=== PATIENT | female | born 1990 | race Caucasian/White ===

== ENCOUNTER 2018-07-08 15:56 | Outpatient (CLI) | payer OTHER ==
[2018-07-08 16:52] LABS: APPEARANCE,URINE CLEAR; BILIRUBIN,URINE NEGATIVE (NEGATIVE); COLOR,URINE YELLOW; GLUCOSE, URINE NEGATIVE (NEGATIVE); KETONES,URINE NEGATIVE (NEGATIVE); LEUKOCYTE ESTERASE,URINE NEGATIVE (NEGATIVE); NITRITE,URINE NEGATIVE (NEGATIVE); PROTEIN,URINE NEGATIVE (NEGATIVE); URINE SPECIFIC GRAVITY 1.008; UROBILINOGEN,URINE NEGATIVE mg/dL (<2.0)
[2018-07-08 17:15] LABS: URINE AMPHETAMINES SCREEN NEGATIVE; URINE BARBITURATES SCREEN NEGATIVE; URINE BENZODIAZEPINES SCREEN NEGATIVE; URINE COCAINE SCREEN NEGATIVE; URINE MARIJUANA (THC) SCREEN NEGATIVE; URINE METHADONE SCREEN NEGATIVE; URINE PHENCYCLIDINE SCREEN NEGATIVE
[2018-07-08] MEDS ORDERED: RINGERS SOLUTION,LACTATED 1,000 ML IV PRN (23:41)
[2018-07-08] MEDS ORDERED: RINGERS SOLUTION,LACTATED 1,000 ML IV ONE (23:47)
[2018-07-08] MEDS ORDERED: LIDOCAINE 1% INJ-PF (10 MG/ML) 30 ML SDV ONE (23:51)
[2018-07-08] MEDS ORDERED: BUPIVACAINE HCL 0.5 % INJ/PF 30 ML SDV ONE (23:51)
[2018-07-08] MEDS ORDERED: MISOPROSTOL 0.2 MG TABLET ONE (23:51)
[2018-07-08] MEDS ORDERED: EPHEDRINE SULFATE INJ 50 MG/1 ML AMPULE ONE (23:51)
[2018-07-08] MEDS ORDERED: FENTANYL/BUPIVACAINE/NS/PF 0 MCG/0 ML RTUINJ EPI ONE (23:51)
[2018-07-08] MEDS ORDERED: OXYTOCIN/NORMAL SALINE 0 UNIT/0 ML RTUINJ ONE (23:51)
== END 2018-07-08 16:55 | disposition home or self-care (01) ==
LOC: LC 15:56 → LR 23:11 → UNDOADMIN 23:11
PROVIDERS: ATTEND Obstetrics & Gynecology
DX: O47.1 False labor at or after 37 completed weeks of gestation (principal); Z3A.39 39 weeks gestation of pregnancy
CPT/HCPCS: 59025; 80307; 81005; J2590; J3010; J3490

== ENCOUNTER 2018-07-08 22:48 | Inpatient (IN) | payer OTHER ==
[2018-07-08] MEDS ORDERED: RINGERS SOLUTION,LACTATED 1,000 ML IV PRN (23:16)
[2018-07-08] MEDS ORDERED: RINGERS SOLUTION,LACTATED 1,000 ML IV ONE (23:25)
[2018-07-08 23:30] LABS: ABSOLUTE BASOPHILS # (AUTO) 0.1 10^3/uL (0.0-0.2); ABSOLUTE EOSINOPHILS # (AUTO) 0.1 10^3/uL (0.0-0.6); ABSOLUTE LYMPHOCYTES (AUTO) 1.5 10^3/uL (0.5-4.7); ABSOLUTE MONOCYTES (AUTO) 1.3 10^3/uL (0.1-1.4); ABSOLUTE NEUT (AUTO) 10.8 10^3/uL (1.7-8.2); BASOPHILS % (AUTO) 0.5 % (0-2); EOSINOPHILS % (AUTO) 0.8 % (0-6); HEMATOCRIT 36.2 % (36.0-47.0); HEMOGLOBIN 12.2 g/dL (12.0-15.5); LYMPHOCYTES % (AUTO) 11.3 % (13-45); MEAN CORPUSCULAR HEMOGLOBIN 29.9 pg (27.0-33.4); MEAN CORPUSCULAR HGB CONC 33.6 g/dL (32.0-36.0); MEAN CORPUSCULAR VOLUME 89 fl (80-97); MONOCYTES % (AUTO) 9.1 % (3-13); PLATELET COUNT 203 10^3/uL (150-450); RED BLOOD COUNT 4.07 10^6/uL (3.72-5.28); RED CELL DISTRIBUTION WIDTH 14.7 % (11.5-14.0); SEGMENTED NEUTROPHILS % (AUTO) 78.3 % (42-78); TOTAL CELLS COUNTED % (AUTO) 100 %; WHITE BLOOD COUNT 13.7 10^3/uL (4.0-10.5)
[2018-07-08 23:32] LABS: APPEARANCE,URINE CLEAR; BILIRUBIN,URINE NEGATIVE (NEGATIVE); COLOR,URINE STRAW; GLUCOSE, URINE NEGATIVE (NEGATIVE); KETONES,URINE NEGATIVE (NEGATIVE); LEUKOCYTE ESTERASE,URINE NEGATIVE (NEGATIVE); NITRITE,URINE NEGATIVE (NEGATIVE); PROTEIN,URINE NEGATIVE (NEGATIVE); URINE SPECIFIC GRAVITY 1.003; UROBILINOGEN,URINE NEGATIVE mg/dL (<2.0)
[2018-07-08 23:46] LABS: URINE AMPHETAMINES SCREEN NEGATIVE; URINE BARBITURATES SCREEN NEGATIVE; URINE BENZODIAZEPINES SCREEN NEGATIVE; URINE COCAINE SCREEN NEGATIVE; URINE MARIJUANA (THC) SCREEN NEGATIVE; URINE METHADONE SCREEN NEGATIVE; URINE PHENCYCLIDINE SCREEN NEGATIVE
[2018-07-09] MEDS ORDERED: BUPIVACAINE HCL 0.5 % INJ/PF 30 ML SDV ONE (00:01)
[2018-07-09] MEDS ORDERED: MISOPROSTOL 0.2 MG TABLET ONE (00:01)
[2018-07-09] MEDS ORDERED: FENTANYL/BUPIVACAINE/NS/PF 300 MCG/150 ML RTUINJ EPI ONE (00:01)
[2018-07-09] MEDS ORDERED: EPHEDRINE SULFATE INJ 50 MG/1 ML AMPULE ONE (00:01)
[2018-07-09] MEDS ORDERED: LIDOCAINE 1% INJ-PF (10 MG/ML) 30 ML SDV ONE (00:01)
[2018-07-09] MEDS ORDERED: OXYTOCIN/NORMAL SALINE 20 UNIT/1,000 ML RTUINJ ONE (00:01)
[2018-07-09] MEDS ORDERED: OXYTOCIN/NORMAL SALINE 20 UNIT/1,000 ML RTUINJ IV PRN ×2 (02:32→04:23)
--- NOTE | 2018-07-09 02:32 | Admission Physical ---
Datetime Report Generated by CPN: 07/09/2018 02:32 CURRENT ADMISSION Chief Complaint: Uterine Contractions Indication for Induction: Not Applicable Admit Impression : Term, Intrauterine ; Active Labor Admit Plan: Admit to Unit; Initiate Labor Protocol ALLERGIES Medication Allergies: No Medication Allergies: No Known Allergies (07/08/2018) Latex: No Latex Allergies OBSTETRICAL HISTORY EDC: 07/10/2018 00:00 : 1 Para: 0 Term: 0 : 0 SAB: 0 IAB: 0 Ectopic: 0 Livin Cesareans: 0 VBACs: 0 Multiple Births: 0 PHYSICAL EXAM General: Normal HEENT: Normal Neurologic: Normal Thyroid: Normal Heart: Normal Lungs: Normal Breast: Normal Back: Normal Abdomen: Normal Genitourinary Exam: Normal Extremities: Normal DTRs: Normal Pelvic Type: Adequate Vital Signs: Reviewed VAGINAL EXAM Dilatation: 3 Effacement: 100 Station: -1 MEMBRANES Pooling: Negative Membranes: Intact FETUS A EGA: 39.6 Monitoring: External US FHR- Baseline: 130 Variability: Moderate 6-25bpm Accelerations: 15X15 Decelerations: None FHR Category: Category I Estimated Weight (gm): 3400 Presentation: Vertex PLANS FOR LABOR AND DELIVERY Circumcision: N/A INFORMED CONSENT Signature: with User ID: [email or web address]
[2018-07-09] MEDS ORDERED: ACETAMINOPHEN 325 MG TABLET ONE ×2 (04:04→04:20)
[2018-07-09] MEDS ORDERED: AMPICILLIN SOD INJ 1 GM VIAL ONE (04:07)
[2018-07-09] MEDS ORDERED: DIPH/PERTUSS(ACELL)/TETANUS VAC/PF 0.5 ML SYR (>=10YO) IM PRN (04:23)
[2018-07-09] MEDS ORDERED: PROMETHAZINE HCL INJ 25 MG/1 ML VIAL IV PRN (04:23)
[2018-07-09] MEDS ORDERED: DIBUCAINE 1% OINTMENT 28 GM TP PRN (04:23)
[2018-07-09] MEDS ORDERED: MEASLES,MUMPS&RUBELLA VACC/PF 0.5 ML VIAL SUBCUT PRN (04:23)
[2018-07-09] MEDS ORDERED: ACETAMINOPHEN WITH CODEINE #3 TABLET PO PRN ×2 (04:23)
[2018-07-09] MEDS ORDERED: PSEUDOEPHEDRINE HCL 30 MG TABLET PO PRN (04:23)
[2018-07-09] MEDS ORDERED: DIPHENHYDRAMINE HCL 25 MG CAPSULE PO PRN (04:23)
[2018-07-09] MEDS ORDERED: BENZOCAINE/MENTHOL AEROSOL SPRAY 56 ML TOP PRN (04:23)
[2018-07-09] MEDS ORDERED: PROMETHAZINE HCL 25 MG SUPP.RECT PR PRN (04:23)
[2018-07-09] MEDS ORDERED: MAGNESIUM HYDROXIDE SUSP 30 ML UDCUP PO PRN (04:23)
[2018-07-09] MEDS ORDERED: ZOLPIDEM TARTRATE 5 MG TABLET PO PRN (04:23)
[2018-07-09] MEDS ORDERED: GLYCERIN/WITCH HAZEL LEAF 1 EACH MED..PAD TP PRN (04:23)
[2018-07-09] MEDS ORDERED: NA PHOS,M-B/NA PHOS,DI-BA (ADULT) 133 ML ENEMA PR PRN (04:23)
[2018-07-09] MEDS ORDERED: ACETAMINOPHEN 650 MG SUPP.RECT PR PRN (04:23)
[2018-07-09] MEDS ORDERED: PROMETHAZINE HCL 25 MG TABLET PO PRN (04:23)
[2018-07-09] MEDS ORDERED: IBUPROFEN 800 MG TABLET ONE (05:40)
[2018-07-09] MEDS: IBUPROFEN 800 MG TABLET PO SCH ×3 (06:02→21:36)
--- NOTE | 2018-07-09 06:14 | Delivery Summary ---
Del Sum A-C Datetime Report Generated by CPN: 07/09/2018 06:14 DELIVERY PERSONNEL DELIVERY PERSONNEL: [id number] Delivery Doctor:: Pam Pavon MD Labor and Delivery Nurse:: Marlena Rooney RN Labor and Delivery Nurse:: Casandra Mills RN Cath Lab Tech/CELLULAR EQUIPMENT INSTALLER: Agusto Ertel, CELLULAR EQUIPMENT INSTALLER MATERNAL INFORMATION Delivery Anesthesia: Epidural Medications After Delivery: Pitocin Drip 20 Units/1000ml NSS; Cytotec 1000mcg Per Rectum/Vagina Estimated Blood Loss (ml): 200 Maternal Complications: None LABOR SUMMARY EDC: 07/10/2018 00:00 No. Babies in Womb: 1 Attempted: No Labor Anesthesia: Epidural LABOR INFORMATION Reason for Induction: Not Applicable Onset of Labor: 07/08/2018 23:05 Complete Dilatation: 07/09/2018 03:24 Oxytocin: Augmentation Group B Beta Strep: negative Antibiotics # of Doses: 0 Steroids Given: None Reason Steroids Not Administered: Not Applicable MEMBRANES Membranes Rupture Method: Artificial Rupture of Membranes: 07/09/2018 02:24 Length of Rupture (hr): 1.73 Amniotic Fluid Color: Clear Amniotic Fluid Amount: Small Amniotic Fluid Odor: Normal STAGES OF LABOR Stage 1 hr: 4 Stage 1 min: 19 Stage 2 hr: 0 Stage 2 min: 44 Stage 3 hr: 0 Stage 3 min: 3 Total Time in Labor hr: 5 Total Time in Labor min: 6 VAGINAL DELIVERY Episiotomy: None Laceration #1: None Laceration Extension #1: N/A Laceration Repair: Not Applicable CSECTION DELIVERY Primary Indication: N/A Secondary Indication: N/A CSection Incidence: N/A Labor: N/A Elective: N/A CSection Incision: N/A BABY A INFORMATION Infant Delivery Date/Time: 07/09/2018 04:08 Method of Delivery: Vaginal Born in Route : No : N/A Forceps: N/A Vacuum Extraction: N/A Shoulder Dystocia : No PRESENTATION/POSITION BABY A Presentation: Cephalic Cephalic Presentation: Vertex Vertex Position: Left Occipital Anterior Breech Presentation: N/A PLACENTA INFORMATION BABY A Placenta Delivery Time : 07/09/2018 04:11 Placenta Method of Delivery: Spontaneous Placenta Status: Delivered SCORES BABY A Heart Rate 1 min: >100 bpm Resp Effort 1 min: Good Cry Reflex Irritability 1 min: Cough or Sneeze or Pulls Away Muscle Tone 1 min: Active Motion Color 1 min: Blue/Pale Resuscitation Effort 1 min: Tactile Stimulation SCORE 1 MIN: 8 Heart Rate 5 min: >100 bpm Resp Effort 5 min: Good Cry Reflex Irritability 5 min: Cough or Sneeze or Pulls Away Muscle Tone 5 min: Active Motion Color 5 min: Body [place], Extremities Blue Resuscitation Effort 5 min: Tactile Stimulation SCORE 5 MIN: 9 INFORMATION BABY A Gestational Age at Delivery: 39.6 Gestational Status: Full Term- 39- 40.6 Weeks Infant Outcome : Liveborn Condition : Stable Infant Sex: Female IDENTIFICATION BABY A Infant Verification Date/Time: 07/09/2018 04:52 ID Band Number: [id number] Mother's Name Verified: Yes RN Verifying Infant: SMadeline Rooney, RNC _ A. Torstener, RN WEIGHT/LENGTH BABY A Infant Birthweight (gm): 3420 Infant Weight (lb): 7 Infant Weight (oz): 9 Infant Length (in): 20.75 Length (cm): 52.71 CORD INFORMATION BABY A No. Cord Vessels: 3 Nuchal Cord : N/A Cord Blood Taken: Yes-For Eval (Mom's Blood Type - or O+) Suction: Mouth; Nose ASSESSMENT BABY A Infant Complications: None Physical Findings at Delivery: Within Normal Limits Infant Respirations: Appears Normal Chain Repairer/ALS Called : No Infant Care By: Velma Mills RN Transferred To: Remains with Mother BABY B INFORMATION : N/A SIGNATURES Signature: with User ID: [email or web address]
--- NOTE | 2018-07-09 09:29 | PDOC PROGRESS REPORT ---
Subjective-OB Progress Note for:: 07/09/18 - Delivery Day, doing well, plans to breastfeed. Retained placenta w/ low grade fever during labor. Pt states she has been up to void w/out problems or increased bleeding Physical Exam (OB) Vital Signs: Temp Pulse Resp BP Pulse Ox 98.9 F 82 18 125/70 95 07/09/18 07:52 07/09/18 07:52 07/09/18 07:52 07/09/18 07:52 07/09/18 07:52 Intake & Output 07/08/18 07/09/18 07/10/18 06:59 06:59 06:59 Weight 71.1 kg - General General Appearance: Appears well, Alert In distress: None - PIH/Pre-Eclampsia Clonus: Negative Headache: Absent Epigastric Pain: No Visual Changes: No - Lochia Lochia Amount: Scant < 10 ml Lochia Color: Rubra/Red - Abdomen Description: Soft, Flat Hernia Present: No Fundal Description: Firm, Midline Fundal Height: u/u - u/2 - Respiratory Respiratory Status: No respiratory distress - Genitourinary Genitourinary Note: voiding - Extremities Upper extremity: Normal inspection Lower extremities: Normal inspection - Neurological Cognition: Normal Orientation: AAOx4 - Skin Skin Temperature: Warm Skin Moisture: Dry Objective-Diagnostic Laboratory: 07/08/18 23:18 07/08/18 07/08/18 07/08/18 22:56 23:18 23:18 WBC 13.7 H RBC 4.07 Hgb 12.2 Hct 36.2 MCV 89 MCH 29.9 MCHC 33.6 RDW 14.7 H Plt Count 203 Seg Neutrophils % 78.3 H Lymphocytes % 11.3 L Monocytes % 9.1 Eosinophils % 0.8 Basophils % 0.5 Absolute Neutrophils 10.8 H Absolute Lymphocytes 1.5 Absolute Monocytes 1.3 Absolute Eosinophils 0.1 Absolute Basophils 0.1 Urine Color STRAW Urine Appearance CLEAR Urine pH 7.0 Ur Specific [place] 1.003 Urine Protein NEGATIVE Urine Glucose (UA) NEGATIVE Urine Ketones NEGATIVE Urine Blood NEGATIVE Urine Nitrite NEGATIVE Ur Leukocyte Esterase NEGATIVE Blood Type O POSITIVE Antibody Screen NEGATIVE Assessment and Plan(PN) - Assessment and Plan (1) (normal spontaneous vaginal delivery) Is this a current diagnosis for this admission?: Yes - Time Spent with Patient Time with patient: Less than 15 minutes Medications reviewed and adjusted accordingly: Yes - Disposition Anticipated Discharge: Home Within: within 48 hours
[2018-07-09] MEDS: FAMOTIDINE 20 MG TABLET PO SCH ×2 (10:00→21:36)
[2018-07-09] MEDS: SENNOSIDES/DOCUSATE 8.6-50 MG 1 EACH TABLET PO SCH (10:00)
[2018-07-09] MEDS: FERROUS SULFATE 325 MG TABLET PO SCH ×2 (10:00→18:20)
[2018-07-09] MEDS: PRENATAL VITAMIN W DHA CAPSULE PO SCH (10:00)
[2018-07-09] MEDS: DOCUSATE SODIUM 100 MG CAPSULE PO SCH ×2 (10:00→18:20)
[2018-07-10] MEDS: IBUPROFEN 800 MG TABLET PO SCH ×2 (06:18→13:05)
[2018-07-10 07:05] LABS: HEMATOCRIT 33.4 % (36.0-47.0); HEMOGLOBIN 11.4 g/dL (12.0-15.5); MEAN CORPUSCULAR HEMOGLOBIN 30.8 pg (27.0-33.4); MEAN CORPUSCULAR HGB CONC 34.2 g/dL (32.0-36.0); MEAN CORPUSCULAR VOLUME 90 fl (80-97); PLATELET COUNT 150 10^3/uL (150-450); RED BLOOD COUNT 3.71 10^6/uL (3.72-5.28); RED CELL DISTRIBUTION WIDTH 14.5 % (11.5-14.0); WHITE BLOOD COUNT 9.7 10^3/uL (4.0-10.5)
[2018-07-10 08:21] VITALS: BP 122/82
[2018-07-10] MEDS: PRENATAL VITAMIN W DHA CAPSULE PO SCH (09:47)
[2018-07-10] MEDS: FERROUS SULFATE 325 MG TABLET PO SCH ×2 (09:47→17:49)
[2018-07-10] MEDS: FAMOTIDINE 20 MG TABLET PO SCH (09:47)
[2018-07-10] MEDS: DOCUSATE SODIUM 100 MG CAPSULE PO SCH ×2 (09:47→17:49)
[2018-07-10] MEDS: SENNOSIDES/DOCUSATE 8.6-50 MG 1 EACH TABLET PO SCH (09:47)
--- NOTE | 2018-07-10 10:52 | PDOC DISCHARGE SUMMARY ---
Final Diagnosis Discharge Date: 07/10/18 - Final Diagnosis (1) (normal spontaneous vaginal delivery) Is this a current diagnosis for this admission?: Yes Discharge Data - Discharge Medication Prescriptions: Ibuprofen [Motrin 800 mg Tablet] 800 mg PO Q8HP PRN #60 tablet PRN Reason: Home Medications: Vit/Dha [ Multi + Dha Capsule] 1 cap PO DAILY 07/08/18 Ibuprofen [Motrin 800 mg Tablet] 800 mg PO Q8HP PRN #60 tablet 07/10/18 Reason(s) for Admission: Onset of Labor Procedures: NST Intrapartum Procedure(s): Spontaneous Vaginal Delivery - Diagnosis Test Laboratory: Temp Pulse Resp BP Pulse Ox 97.7 F 68 16 122/82 98 07/10/18 08:02 07/10/18 08:02 07/10/18 08:02 07/10/18 08:02 07/10/18 08:02 07/08/18 07/08/18 07/10/18 22:56 23:18 06:41 RBC 4.07 3.71 L Hgb 12.2 11.4 L Hct 36.2 33.4 L Urine Opiates Screen NEGATIVE - Discharge information/Instructions Discharge Activity: Activity As Tolerated, Balance Activity w/Rest, Pelvic Rest Discharge Diet: Regular Disposition: HOME, SELF-CARE Follow up with: [facility] in: 3, 4, Weeks
== END 2018-07-10 18:30 | disposition home or self-care (01) | DRG 807 ==
LOC: LC 22:48 → LR 07-09 → 2S 07-09 06:25
PROVIDERS: ADMIT Obstetrics & Gynecology; ATTEND Obstetrics & Gynecology
PROC: 10E0XZZ Delivery of Products of Conception, External Approach (ICD-10-PCS; principal; 2018-07-09)
DX: O80 Encounter for full-term uncomplicated delivery (principal); Z37.0 Single live birth; Z3A.39 39 weeks gestation of pregnancy
CPT/HCPCS: 36415; 80307; 81005; 85025; 85027; 86592; 86850; 86900; 86901; 94760; J0290; J2590; J3010; J3490

== ENCOUNTER 2020-05-25 16:17 | Outpatient (CLI) | payer OTHER ==
[2020-05-25 16:54] LABS: APPEARANCE,URINE CLEAR; BILIRUBIN,URINE NEGATIVE (NEGATIVE); COLOR,URINE YELLOW; GLUCOSE, URINE 50 mg/dL (NEGATIVE); KETONES,URINE NEGATIVE (NEGATIVE); LEUKOCYTE ESTERASE,URINE NEGATIVE (NEGATIVE); NITRITE,URINE NEGATIVE (NEGATIVE); PROTEIN,URINE NEGATIVE (NEGATIVE); URINE SPECIFIC GRAVITY 1.009; UROBILINOGEN,URINE NEGATIVE mg/dL (<2.0)
[2020-05-25 17:11] LABS: URINE AMPHETAMINES SCREEN NEGATIVE; URINE BARBITURATES SCREEN NEGATIVE; URINE BENZODIAZEPINES SCREEN NEGATIVE; URINE COCAINE SCREEN NEGATIVE; URINE MARIJUANA (THC) SCREEN NEGATIVE; URINE METHADONE SCREEN NEGATIVE; URINE PHENCYCLIDINE SCREEN NEGATIVE
== END 2020-05-25 17:10 | disposition home or self-care (01) ==
LOC: LC 16:17
PROVIDERS: ATTEND Obstetrics & Gynecology Gynecology
DX: O9A.213 Injury, poisoning and certain other consequences of external causes complicating pregnancy, third trimester (principal); Z3A.28 28 weeks gestation of pregnancy; T14.8XXA Other injury of unspecified body region, initial encounter; W86.1XXA Exposure to industrial wiring, appliances and electrical machinery, initial encounter; Y93.9 Activity, unspecified; Y92.9 Unspecified place or not applicable
CPT/HCPCS: 80307; 81001

== ENCOUNTER 2020-08-09 06:02 | Inpatient (IN) | payer OTHER ==
[2020-08-09] MEDS ORDERED: PENICILLIN G POTASSIUM 5,000,000 UNIT in DEXTROSE 5%-WATER 100 ML IV ONE (06:08)
[2020-08-09] MEDS ORDERED: RINGERS SOLUTION,LACTATED 1,000 ML IV PRN (06:08)
[2020-08-09] MEDS ORDERED: MISOPROSTOL 0.2 MG TABLET ONE (06:22)
[2020-08-09] MEDS ORDERED: OXYTOCIN/0.9 % SODIUM CHLORIDE 30 UNIT/500 ML RTUINJ ONE (06:22)
[2020-08-09] MEDS ORDERED: OXYTOCIN 10 UNIT/ML VIAL ONE (06:22)
[2020-08-09] MEDS ORDERED: LIDOCAINE 1% INJ-PF (10 MG/ML) 30 ML SDV ONE (06:22)
[2020-08-09] MEDS ORDERED: PENICILLIN G-K 5 MILLION UNIT VIAL ONE (06:23)
[2020-08-09 06:50] LABS: ABSOLUTE EOSINOPHILS # (AUTO) 0.1 10^3/uL (0.0-0.6); ABSOLUTE LYMPHOCYTES (AUTO) 1.5 10^3/uL (0.5-4.7); ABSOLUTE MONOCYTES (AUTO) 0.7 10^3/uL (0.1-1.4); ABSOLUTE NEUT (AUTO) 5.3 10^3/uL (1.7-8.2); BASOPHILS % (AUTO) 0.5 % (0-2); EOSINOPHILS % (AUTO) 1.4 % (0-6); HEMATOCRIT 34.5 % (36.0-47.0); HEMOGLOBIN 11.5 g/dL (12.0-15.5); LYMPHOCYTES % (AUTO) 19.9 % (13-45); MEAN CORPUSCULAR HEMOGLOBIN 29.4 pg (27.0-33.4); MEAN CORPUSCULAR HGB CONC 33.4 g/dL (32.0-36.0); MEAN CORPUSCULAR VOLUME 88 fl (80-97); PLATELET COUNT 189 10^3/uL (150-450); RED BLOOD COUNT 3.92 10^6/uL (3.72-5.28); SEGMENTED NEUTROPHILS % (AUTO) 69.2 % (42-78); TOTAL CELLS COUNTED % (AUTO) 100 %; WHITE BLOOD COUNT 7.7 10^3/uL (4.0-10.5)
[2020-08-09 07:17] LABS: URINE AMPHETAMINES SCREEN NEGATIVE; URINE BARBITURATES SCREEN NEGATIVE; URINE BENZODIAZEPINES SCREEN NEGATIVE; URINE COCAINE SCREEN NEGATIVE; URINE MARIJUANA (THC) SCREEN NEGATIVE; URINE METHADONE SCREEN NEGATIVE; URINE PHENCYCLIDINE SCREEN NEGATIVE
[2020-08-09] MEDS ORDERED: OXYTOCIN/0.9 % SODIUM CHLORIDE 30 UNIT/500 ML RTUINJ IV PRN ×2 (07:30→15:06)
--- NOTE | 2020-08-09 09:03 | Admission Physical ---
Datetime Report Generated by CPN: 08/09/2020 09:03 CURRENT ADMISSION Indication for Induction: Maternal Diabetes Indication for Induction- Other: GDM on Glyburide Admit Impression : Term, Intrauterine ; Induction of Labor Admit Plan: Admit to Unit; Initiate Labor Induction Protocol Admit Plan- Other: PCN prophylaxis for GBS+ status ALLERGIES Medication Allergies: No Medication Allergies: No Known Allergies (08/09/2020) OBSTETRICAL HISTORY EDC: 08/16/2020 00:00 : 2 Para: 1 Term: 1 : 0 SAB: 0 IAB: 0 Livin Gestational Diabetes: Yes Rh Sensitization: No Incompetent Cervix: No JAVAD: No Infertility: No ART Treatment: No Uterine Anomaly: No IUGR: No Hx Previous C/S: No Macrosomia: No Hx Loss/Stillborn: No PIH: No Hx : No Placenta Previa/Abruption: No Depression/PP Depression: No PTL/PROM: No Post Hemorrhage: No Current Procedures: Ultrasound; NST SEE RECORDS Alcohol: No Marijuana : No Cocaine: No Other Illicit Drugs: No Cigarettes: Never Smoker. [id number] MEDICAL HISTORY Diabetes: Yes Diabetes Type: Gestational Diabetes Blood Transfusion: No Pulmonary Disease (Asthma, TB): No Breast Disease: No Hypertension: No Technology Assistant Surgery: No Heart Disease: No Hosp/Surgery: Yes Autoimmune Disorder: No Anesthetic Complications: No Kidney Disease: No Abnormal Pap Smear: No Neuro/Epilepsy: No Psychiatric Disorders: No Other Medical Diseases: No Hepatitis/Liver Disease: No Significant Family History: No Varicosities/Phlebitis: No Trauma/Violence : No Thyroid Dysfunction: No Medical History Comments: bilateral ureter replacement, tonsillectomy, bunionectomy. INFECTIOUS HISTORY Gonorrhea: No Genital Herpes: No Chlamydia: No Tuberculosis: No Syphilis: No Hepatitis: No HIV/AIDS Exposure: No Rash or Viral Illness: No HPV: No PHYSICAL EXAM General: Normal HEENT: Normal Neurologic: Normal Thyroid: Normal Heart: Normal Lungs: Normal Breast: Normal Back: Normal Abdomen: Normal Genitourinary Exam: Normal Extremities: Normal DTRs: Normal Pelvic Type: Adequate Vital Signs: Reviewed FETUS A Monitoring: External US FHR- Baseline: 135 Variability: Moderate 6-25bpm Accelerations: 15X15 Decelerations: None FHR Category: Category I Admit Comment: here for IOL at 39 wks d/t GDM on glyburide. Pt doing well, no complaints, sitting on the birthing ball. GBS+ status, first dose of PCN infusing. Pitocin started. Pt plans an epdidural when in active labor. EFW on last u/s per the pt is 6+9. Proven to 7 and 1/2 pound baby with first delivery. Will plan to AROM once 4 hours PCN on board, Pt may have an epidural when in labor. Attending MD is Dr Saldaña. PLANS FOR LABOR AND DELIVERY Labor and Delivery: None Pain Management: Epidural Feeding Preference: Breast Circumcision: No INFORMED CONSENT Assignment: Casandra Saldaña MD Signature: with User ID: [email or web address] : with User ID: [email or web address]
[2020-08-09] MEDS: PENICILLIN G POTASSIUM 2,500,000 UNIT in DEXTROSE 5%-WATER 50 ML IV SCH ×2 (10:49→19:41)
[2020-08-09] MEDS ORDERED: EPHEDRINE SULFATE INJ 50 MG/1 ML AMPULE ONE (12:19)
[2020-08-09] MEDS ORDERED: ROPIVACAINE HCL 0.2% INJ/PF (2 MG/ML) 20 ML SDV ONE (12:20)
[2020-08-09] MEDS ORDERED: FENTANYL/BUPIVACAINE/NS/PF 300 MCG/150 ML RTUINJ EPI ONE (12:20)
--- NOTE | 2020-08-09 13:44 | L&D Progress Notes ---
PROGRESS NOTES Datetime Report Generated by CPN: 08/09/2020 13:44 PROGRESS NOTE Comment: PCN second dose has infused. VE 5/80/-2, Pitocin infusing and pt is becoming uncomfortable, desires an epidural now. Will plan to AROM after the epidural is placed. Positin changes encouraged. LAST VAGINAL EXAM-NURSING Nursing Exam Dilitation: 5.0 Nursing Exam Effacement: 80 Nursing Exam Station: -2 MEMBRANES Membranes: Intact FETUS A Monitoring: External US Decelerations: None FHR Category: Category I SIGNATURE SIGNATURE: [id number];[id number] Assignment: Casandra Saldaña MD Signature: with User ID: [email or web address] : with User ID: [email or web address]
--- NOTE | 2020-08-09 13:50 | L&D Progress Notes ---
PROGRESS NOTES Datetime Report Generated by CPN: 08/09/2020 13:50 PROGRESS NOTE Impression: Reassuring Heart Rate Procedures: Artificial ROM; Sterile Vag Exam Plan: Continue Present Management; Induction; Anticipate Vaginal Delivery Comment: Epidural in place, pt is comfortable, VE /-1, AROM w/ clear fluid. Position changes encouraged, anticipate . Attending MD is DR Saldaña. LAST VAGINAL EXAM-NURSING Nursing Exam Dilitation: 8.0 Nursing Exam Effacement: 90 Nursing Exam Station: -1 MEMBRANES Membranes: Ruptured Amniotic Fluid Color: Clear FETUS A FHR - Baseline: 125 Monitoring: External US Variability: Moderate 6-25bpm Accelerations: 15X15 Decelerations: Variable FHR Category: Category I SIGNATURE SIGNATURE: [id number];[id number] Assignment: Casandra Saldaña MD Signature: with User ID: [email or web address] : with User ID: [email or web address]
[2020-08-09] MEDS ORDERED: VARICELLA VACC/PF (1350 UNIT/0.5 ML) 0.5 ML VIAL SUBCUT PRN (15:06)
[2020-08-09] MEDS ORDERED: ZOLPIDEM TARTRATE 5 MG TABLET PO PRN (15:06)
[2020-08-09] MEDS ORDERED: BENZOCAINE/MENTHOL AEROSOL SPRAY 56 ML TOP PRN (15:06)
[2020-08-09] MEDS ORDERED: ACETAMINOPHEN 325 MG TABLET PO PRN (15:06)
[2020-08-09] MEDS ORDERED: DIPHENHYDRAMINE HCL 25 MG CAPSULE PO PRN (15:06)
[2020-08-09] MEDS ORDERED: DIBUCAINE 1% OINTMENT 28 GM TP PRN (15:06)
[2020-08-09] MEDS ORDERED: DIPH/PERTUSS(ACELL)/TETANUS VAC/PF 0.5 ML SYR (>=10YO) IM PRN (15:06)
[2020-08-09] MEDS ORDERED: GLYCERIN/WITCH HAZEL LEAF 1 EACH MED..WIPE TP PRN (15:06)
[2020-08-09] MEDS ORDERED: MEASLES,MUMPS&RUBELLA VACC/PF 0.5 ML VIAL SUBCUT PRN (15:06)
[2020-08-09] MEDS ORDERED: MAG HYDROX/AL HYDROX/SIMETH SUSP 30 ML UDCUP PO PRN (15:06)
[2020-08-09] MEDS ORDERED: PSEUDOEPHEDRINE HCL 30 MG TABLET PO PRN (15:06)
[2020-08-09] MEDS ORDERED: ACETAMINOPHEN 650 MG SUPP.RECT PR PRN (15:06)
[2020-08-09] MEDS ORDERED: MAGNESIUM HYDROXIDE SUSP 30 ML UDCUP PO PRN (15:06)
[2020-08-09] MEDS ORDERED: ACETAMINOPHEN WITH CODEINE #3 TABLET PO PRN (15:06)
[2020-08-09] MEDS ORDERED: FAMOTIDINE 20 MG TABLET PO PRN (15:06)
[2020-08-09] MEDS ORDERED: DEXTROSE 40% GEL 15 GM TUBE PO PRN ×2 (15:47)
[2020-08-09] MEDS ORDERED: DEXTROSE 50%-WATER 25 GM/50 ML DISP.SYRIN IV PRN ×2 (15:47)
[2020-08-09] MEDS ORDERED: GLUCAGON,HUMAN RECOMB 1 MG INJ IM PRN (15:47)
[2020-08-09] MEDS ORDERED: IBUPROFEN 800 MG TABLET ONE (16:00)
[2020-08-09] MEDS: IBUPROFEN 800 MG TABLET PO SCH ×2 (16:02→22:46)
--- NOTE | 2020-08-09 16:07 | Birth Certificate Data ---
Cert Data Datetime Report Generated by CPN: 08/09/2020 16:06 CERTIFICATE DATA Delivery Provider: Marivel Newman CNM (05/25/2020 16:37:Lisa Sawant RN) 47a. Care: Yes (05/25/2020 16:37:Franchesca Dejesus RN) 47b. Date of First Visit: 02/06/2020 00:00 (05/25/2020 16:37:Franchesca Dejesus RN) 47c. Date of Last Visit: 08/03/2020 00:00 (05/25/2020 16:37:Franchesca Dejesus RN) 47d. Number of Visits: 13 (05/25/2020 16:37:Franchesca Dejesus RN) 48a. Number of Prev Live Births: 1 (05/25/2020 16:37:Franchesca Dejesus RN) 48b. Now Livin (05/25/2020 16:37:Marie Evangelista RN) 48c. Live Births Now : 0 (05/25/2020 16:37:QS system process) 48d. Date of Last Live : 07/09/2018 00:00 (05/25/2020 16:37:Franchesca Dejesus RN) RISK FACTORS IN THIS 49a. Diabetes: Yes (05/25/2020 16:37:Franchesca Dejesus RN) Type of Diabetes: Gestational Diabetes (05/25/2020 16:37:Franchesca Dejesus RN) 49b. Hypertension: No (05/25/2020 16:37:Franchesca Dejesus RN) 49c. Previous Births: 0 (05/25/2020 16:37:Marie Evangelista RN) 49d. Stillborns: No (05/25/2020 16:37:Franchesca Dejesus RN) 49d. IUGR: No (05/25/2020 16:37:Franchesca Dejesus RN) 49e. Infertility Treatment: No (05/25/2020 16:37:Franchesca Dejesus RN) Mother's Height 50b. Height Inches: 68 (08/09/2020 06:27:QS system process) Mother's Weight 51b. Weight at Delivery (lbs): 150 (08/09/2020 06:27:QS system process) 52. Dt Last Normal Menses Began: 11/10/2019 00:00 (05/25/2020 16:37:Marie Evangelista RN) Infections Present/Treated 53a. Gonorrhea: No (05/25/2020 16:37:Franchesca Dejesus RN) Results this Hospital Visit : Negative (05/25/2020 16:37:Marie Evangelitsa RN) 53b. Syphilis: No (05/25/2020 16:37:Franchesca Dejesus RN) Results this Hospital Visit: NONREACTIVE (08/09/2020 06:39:QS system process) 53c. Chlamydia: No (05/25/2020 16:37:Franchesca Dejesus RN) Results this Hospital Visit: Negative (05/25/2020 16:37:Marie Evangelista RN) 53d. Hepatitis B: No (05/25/2020 16:37:Franchesca Dejesus RN) Results this Hospital Visit: Negative (05/25/2020 16:37:Marie Evangelista RN) 53h. Mother Tested for HBsAG: Yes (05/25/2020 16:37:rFanchesca Dejesus RN) 53i. Date Tested: 02/06/2020 00:00 (05/25/2020 16:37:Franchesca Dejesus RN) 53j. Test Result: Negative (05/25/2020 16:37:Marie Sales, RN) Obstetric Procedures 54a, b, c. Obstetric Procedures: Ultrasound; NST (05/25/2020 16:37:Franchesca Dejesus RN) Cigarette Smoking Cigarette Smoking: Never Smoker. [id number] (05/25/2020 16:37:Franchesca Dejesus RN) Onset of Labor 56a. PROM >12 Hrs: 1.05 (05/25/2020 16:37:QS system process) 56b. Precipitous Labor <3 Hrs: 3 (05/25/2020 16:37:QS system process) 56c. Prolonged Labor > 20 Hrs: 3 (05/25/2020 16:37:QS system process) 57a. Induction of Labor: Induction (05/25/2020 16:37:Marie Evangelista RN) 57c. Non-Vertex Presentation A: Vertex (05/25/2020 16:37:Lisa Sawant RN) 57d. Steroids - Lung Mat: None (05/25/2020 16:37:Lisa Sawant RN) 57d. Steroids - Lung Mat: Not Applicable (05/25/2020 16:37:Lisa Sawant RN) 57e. Antibiotics During Labor: 08/09/2020 10:49 (05/25/2020 16:37:Marie Evangelista RN) 57f. Mat [place] or Temp >100.4: 97.8 (05/25/2020 16:37:Lisa Sawant RN) 57g. Moderate/Heavy Meconium: Clear (08/09/2020 13:45:Marie Evangelista RN) 57h. Intolerance of Labor: N/A (05/25/2020 16:37:Marie Evangelista RN) : N/A (05/25/2020 16:37:Marie Evangelista RN) 57i. Epidural/Spinal Anesthesia: Epidural (05/25/2020 16:37:Marie Evangelista RN) Method of Delivery 58a. Forceps - Unsuccessful A: N/A (05/25/2020 16:37:Lisa Sawant RN) 58b. Vacuum - Unsuccessful A: N/A (05/25/2020 16:37:Lisa Sawant RN) 58c. Presentation at 58c. Presentation at - A : Vertex (05/25/2020 16:37:Lisa Sawant RN) 58c. Presentation at - A : N/A (05/25/2020 16:37:Lisa Swaant RN) 58c. Presentation at - A : Cephalic (05/25/2020 16:37:Lisa Sawant RN) Final Route and Method of Del 58d. Baby A Route/Delivery: Vaginal (08/09/2020 14:48:Marie Evangelista RN) 58e. Trial of Labor Attempted: No (05/25/2020 16:37:Marie Evangelista RN) 58e. Trial of Labor Attempted A: N/A (05/25/2020 16:37:Lisa JoaquinANGELITA woodard) Maternal Morbidity 59b. 3rd or 4th Degree Lacs: None (05/25/2020 16:37:Marie Evangelista RN) Birthweight Baby A: 3217 (05/25/2020 16:37:Marie Evangelista RN) 60a. Pounds : 7 (05/25/2020 16:37:QS system process) 60b. Ounces: 1 (05/25/2020 16:37:QS system process) 61. GA at Delivery Baby A: 39.0 (05/25/2020 16:37:Lisa Sawant RN) : Full Term- 39- 40.6 Weeks (05/25/2020 16:37:QS system process) 62a. 5 Minute Baby A: 9 (05/25/2020 16:37:QS system process)
--- NOTE | 2020-08-09 16:07 | Delivery Summary ---
Del Sum A-C Datetime Report Generated by CPN: 08/09/2020 16:06 DELIVERY PERSONNEL DELIVERY PERSONNEL: [id number] Delivery Doctor:: Marivel Newman CNM Labor and Delivery Nurse:: Marie Evangelista RNbusiness sales consultant Nurse:: ISSAC Francis Nursery Nurse:: Maisha Garvey RN Field Traffic Investigator/TEST FACILITY ENGINEER: Shyann Diggs, INSURANCE OFFICE MANAGER MATERNAL INFORMATION Delivery Anesthesia: Epidural Medications After Delivery: Pitocin 30 Units in 500ml NS/D5W Maternal Complications: None Provider Comments: of VMI, delivered RADHA, NC x 1, easily reduced, shoulders and body easily delivered. Baby placed on pts abdoman vigorous and crying. Cord clamped and cut after one minute, cord blood collected. Placenta S/C/I, IV Pitocin infusing. FF w/ decreased Lochia. Pt and baby in stable condition, skin to skin, Apgars 9,9. Pt plans to breastfeed. PCN x2 doses infused. Attending MD is Dr Saldaña LABOR SUMMARY EDC: 08/16/2020 00:00 No. Babies in Womb: 1 Attempted: No Labor Anesthesia: Epidural LABOR INFORMATION Reason for Induction: Other Reason for Induction- Other: Previous rapid labor, GDM Onset of Labor: 08/09/2020 11:30 Complete Dilatation: 08/09/2020 14:40 Oxytocin: Induction Group B Beta Strep: positive Antibiotics # of Doses: 2 Antibiotics Time of Last Dose: 08/09/2020 10:49 Name of Antibiotic Given: PCN G Steroids Given: None Reason Steroids Not Administered: Not Applicable MEMBRANES Membranes Rupture Method: Artificial Rupture of Membranes: 08/09/2020 13:45 Length of Rupture (hr): 1.05 Amniotic Fluid Color: Clear Amniotic Fluid Amount: Small Amniotic Fluid Odor: Normal STAGES OF LABOR Stage 1 hr: 3 Stage 1 min: 10 Stage 2 hr: 0 Stage 2 min: 8 Stage 3 hr: 0 Stage 3 min: 7 Total Time in Labor hr: 3 Total Time in Labor min: 25 VAGINAL DELIVERY Episiotomy: None Laceration #1: None Laceration Extension #1: N/A Laceration Repair: Not Applicable Sharps Count Correct: N/A CSECTION DELIVERY Primary Indication: N/A Secondary Indication: N/A CSection Incidence: N/A Labor: N/A Elective: N/A CSection Incision: N/A BABY A INFORMATION Infant Delivery Date/Time: 08/09/2020 14:48 Method of Delivery: Vaginal Nurse Controlled Delivery: No Born in Route : No : N/A Forceps: N/A Vacuum Extraction: N/A Shoulder Dystocia : No PRESENTATION/POSITION BABY A Presentation: Cephalic Cephalic Presentation: Vertex Vertex Position: Right Occipital Anterior Breech Presentation: N/A PLACENTA INFORMATION BABY A Placenta Delivery Time : 08/09/2020 14:55 Placenta Method of Delivery: Spontaneous Placenta Status: Delivered SCORES BABY A Heart Rate 1 min: >100 bpm Resp Effort 1 min: Good Cry Reflex Irritability 1 min: Cough or Sneeze or Pulls Away Muscle Tone 1 min: Active Motion Color 1 min: Body [place], Extremities Blue Resuscitation Effort 1 min: Tactile Stimulation SCORE 1 MIN: 9 Heart Rate 5 min: >100 bpm Resp Effort 5 min: Good Cry Reflex Irritability 5 min: Cough or Sneeze or Pulls Away Muscle Tone 5 min: Active Motion Color 5 min: Body [place], Extremities Blue Resuscitation Effort 5 min: N/A SCORE 5 MIN: 9 INFANT INFORMATION BABY A Gestational Age at Delivery: 39.0 Gestational Status: Full Term- 39- 40.6 Weeks Outcome : Liveborn Condition : Stable Sex: Male IDENTIFICATION BABY A Verification Date/Time: 08/09/2020 15:05 ID Band Number: [id number] Mother's Name Verified: Yes RN Verifying Infant: MMadeline Evangelista, RN Additional Verifying Personnel: Erin Mobley RN WEIGHT/LENGTH BABY A Birthweight (gm): 3217 Infant Weight (lb): 7 Infant Weight (oz): 1 Infant Length (in): 20.00 Length (cm): 50.80 CORD INFORMATION BABY A No. Cord Vessels: 3 Nuchal Cord : Around Neck x1, Tight Cord Blood Taken: Yes-For Eval (Mom's Blood Type - or O+) Infant Suction: None ASSESSMENT BABY A Skin to Skin: Yes Skin to Skin Time (min): 60 SIGNATURES Assignment: Casandra Saldaña MD Signature: with User ID: [email or web address] : with User ID: [email or web address]
[2020-08-09] MEDS: DOCUSATE SODIUM 100 MG CAPSULE PO SCH (18:48)
[2020-08-09] MEDS: FERROUS SULFATE 325 MG TABLET PO SCH (18:48)
[2020-08-10] MEDS: IBUPROFEN 800 MG TABLET PO SCH ×3 (05:11→21:36)
[2020-08-10 07:13] LABS: HEMATOCRIT 32.6 % (36.0-47.0); HEMOGLOBIN 11.1 g/dL (12.0-15.5); MEAN CORPUSCULAR HEMOGLOBIN 30.1 pg (27.0-33.4); MEAN CORPUSCULAR HGB CONC 33.9 g/dL (32.0-36.0); MEAN CORPUSCULAR VOLUME 89 fl (80-97); PLATELET COUNT 175 10^3/uL (150-450); RED BLOOD COUNT 3.67 10^6/uL (3.72-5.28); RED CELL DISTRIBUTION WIDTH 14.8 % (11.5-14.0); WHITE BLOOD COUNT 9.4 10^3/uL (4.0-10.5)
--- NOTE | 2020-08-10 10:45 | PDOC PROGRESS REPORT ---
Subjective-OB Progress Note for:: 08/10/20 Subjective: reports bleeding slowing, pain controlled with current meds. denies needs. Physical Exam (OB) Vital Signs: Temp Pulse Resp BP Pulse Ox 98.3 F 72 16 115/67 98 08/10/20 07:37 08/10/20 07:37 08/10/20 07:37 08/10/20 07:37 08/10/20 07:37 Intake & Output 08/09/20 08/10/20 08/11/20 06:59 06:59 06:59 Intake Total 1000 300 Balance 1000 300 Weight 68.1 kg - Maternal Morbidity 59. Maternal Morbidity (serious complications experinced by the mother associated with labor and delivery: None of the above - Abdomen Description: Soft Hernia Present: No Fundal Description: Firm, Midline Fundal Height: u/u - u/2 - Abdominal Distension: No distension Tenderness: Nontender - Extremities Lower extremities: Noni's sign - neg Calf: Normal, Nontender Objective-Diagnostic Laboratory: 08/10/20 07:02 08/10/20 07:02 WBC 9.4 RBC 3.67 L Hgb 11.1 L Hct 32.6 L MCV 89 MCH 30.1 MCHC 33.9 RDW 14.8 H Plt Count 175 Assessment and Plan(PN) - Assessment and Plan (1) Gestational diabetes mellitus in , controlled by oral hypoglycemic drugs Is this a current diagnosis for this admission?: Yes (2) (normal spontaneous vaginal delivery) Is this a current diagnosis for this admission?: Yes - Time Spent with Patient Time with patient: Less than 15 minutes - Disposition Anticipated Discharge Disposition: Home, Self Care Anticipated Discharge Timeframe: within 24 hours
[2020-08-10] MEDS: DOCUSATE SODIUM 100 MG CAPSULE PO SCH ×2 (10:50→18:07)
[2020-08-10] MEDS: FERROUS SULFATE 325 MG TABLET PO SCH ×2 (10:50→18:07)
[2020-08-10] MEDS: PRENATAL VITAMIN W DHA CAPSULE PO SCH (10:50)
[2020-08-10] MEDS: SENNOSIDES/DOCUSATE 8.6-50 MG 1 EACH TABLET PO SCH (10:50)
[2020-08-11] MEDS: IBUPROFEN 800 MG TABLET PO SCH (05:59)
--- NOTE | 2020-08-11 08:42 | PDOC DISCHARGE SUMMARY ---
Impression - Admit/DC Date/PCP Admission Date/Primary Care Provider: 08/09/20 06:02 JERRI PARK MD Discharge Date: 08/11/20 - Discharge Diagnosis (1) Gestational diabetes mellitus in , controlled by oral hypoglycemic drugs Is this a current diagnosis for this admission?: Yes (2) (normal spontaneous vaginal delivery) Is this a current diagnosis for this admission?: Yes - Additional Information Resuscitation Status: Full Code Discharge Diet: Regular Discharge Activity: Balance Activity w/Rest, Pelvic Rest Referrals: JERRI PARK MD [Primary Care Provider] - Prescriptions: Ibuprofen [Motrin 800 mg Tablet] 800 mg PO Q8HP PRN #60 tablet PRN Reason: Home Medications: Vit/Dha [ Multi + Dha Capsule] 1 cap PO DAILY 07/08/18 Ibuprofen [Motrin 800 mg Tablet] 800 mg PO Q8HP PRN #60 tablet 08/11/20 HPI Gestational Age: 41 Reason(s) for Admission: Induction of Labor, Gestional Diabetes Procedures: NST Intrapartum Procedure(s): Spontaneous Vaginal Delivery Hospital Course 59. Maternal Morbidity (serious complications experinced by the mother associated with labor and delivery: None of the above Results Laboratory Results: WBC 9.4 10^3/uL (4.0-10.5) 08/10/20 07:02 RBC 3.67 10^6/uL (3.72-5.28) L 08/10/20 07:02 Hgb 11.1 g/dL (12.0-15.5) L 08/10/20 07:02 Hct 32.6 % (36.0-47.0) L 08/10/20 07:02 MCV 89 fl (80-97) 08/10/20 07:02 MCH 30.1 pg (27.0-33.4) 08/10/20 07:02 MCHC 33.9 g/dL (32.0-36.0) 08/10/20 07:02 RDW 14.8 % (11.5-14.0) H 08/10/20 07:02 Plt Count 175 10^3/uL (150-450) 08/10/20 07:02 Lymph % (Auto) 19.9 % (13-45) 08/09/20 06:39 Ford % (Auto) 9.0 % (3-13) 08/09/20 06:39 Eos % (Auto) 1.4 % (0-6) 08/09/20 06:39 Baso % (Auto) 0.5 % (0-2) 08/09/20 06:39 Absolute Neuts (auto) 5.3 10^3/uL (1.7-8.2) 08/09/20 06:39 Absolute Lymphs (auto) 1.5 10^3/uL (0.5-4.7) 08/09/20 06:39 Absolute Monos (auto) 0.7 10^3/uL (0.1-1.4) 08/09/20 06:39 Absolute Eos (auto) 0.1 10^3/uL (0.0-0.6) 08/09/20 06:39 Absolute Basos (auto) 0.0 10^3/uL (0.0-0.2) 08/09/20 06:39 Seg Neutrophils % 69.2 % (42-78) 08/09/20 06:39 Urine Opiates Screen NEGATIVE 08/09/20 06:17 Urine Methadone Screen NEGATIVE 08/09/20 06:17 Ur Barbiturates Screen NEGATIVE 08/09/20 06:17 Ur Phencyclidine Scrn NEGATIVE 08/09/20 06:17 Ur Amphetamines Screen NEGATIVE 08/09/20 06:17 U Benzodiazepines Scrn NEGATIVE 08/09/20 06:17 Urine Cocaine Screen NEGATIVE 08/09/20 06:17 U Marijuana (THC) Screen NEGATIVE 08/09/20 06:17 RPR NONREACTIVE (NONREACTIVE) 08/09/20 06:39 Blood Type O POSITIVE 08/09/20 06:39 Antibody Screen NEGATIVE 08/09/20 06:39 Plan Plan of Treatment: f/u at [facility] 4 wks Time Spent: Less than 30 Minutes
[2020-08-11] MEDS: SENNOSIDES/DOCUSATE 8.6-50 MG 1 EACH TABLET PO SCH (09:45)
[2020-08-11] MEDS: DOCUSATE SODIUM 100 MG CAPSULE PO SCH (09:45)
[2020-08-11] MEDS: FERROUS SULFATE 325 MG TABLET PO SCH (09:45)
[2020-08-11] MEDS: PRENATAL VITAMIN W DHA CAPSULE PO SCH (09:45)
[2020-08-11 10:29] VITALS: BP 105/64
== END 2020-08-11 12:21 | disposition home or self-care (01) | DRG 807 ==
LOC: LR 06:02 → 2S 17:08
PROVIDERS: ADMIT Obstetrics & Gynecology; ATTEND Obstetrics & Gynecology
PROC: 10E0XZZ Delivery of Products of Conception, External Approach (ICD-10-PCS; principal; 2020-08-09)
PROC: 3E033VJ Introduction of Other Hormone into Peripheral Vein, Percutaneous Approach (ICD-10-PCS; 2020-08-09)
PROC: 10907ZC Drainage of Amniotic Fluid, Therapeutic from Products of Conception, Via Natural or Artificial Opening (ICD-10-PCS; 2020-08-09)
DX: O24.425 Gestational diabetes mellitus in childbirth, controlled by oral hypoglycemic drugs (principal); Z37.0 Single live birth; O69.1XX0 Labor and delivery complicated by cord around neck, with compression, not applicable or unspecified; O99.824 Streptococcus B carrier state complicating childbirth; Z3A.39 39 weeks gestation of pregnancy
CPT/HCPCS: 1967; 36415; 80307; 85025; 85027; 86592; 86850; 86900; 86901; 94760; J2540; J2590; J2795; J3010; J3490; J7060